=== PATIENT | male | born 1950 | race Hispanic/Latino ===

== ENCOUNTER 2022-05-02 20:47 | Emergency (ER) | payer OTHER ==
--- OUTSIDE RECORDS SUMMARY | 2022-05-02 20:51 | XMS REPORT | Continuity of Care Document ---
:1950 Author Organization [facility] t Address [address] [place] [address] Care Team Providers Name Role Phone Riddhi Hurtado Primary Care Physician Riddhi Hurtado Attending Clinician Unavailable Doctor Unassigned, Panacea Attending Clinician Unavailable Lou Ma MD Attending Clinician LOU MA Attending Clinician Unavailable LOU MA Admitting Clinician Unavailable Payers Payer Name Policy Type Policy Number Effective Date Expiration Date S najma [place] [id number] 2017 Common Sp cyndi ing Medicare 00:00:00 [place] [id number] 2017 [facility] Sp cyndi ing Medicare 00:00:00 [facility] Problems Condition Condition Condition Status Onset Resolution Last Treating Co mments Source Name Details Category Date Date Treatment Clinician Date [id number] BPH loc w Problem Com mon urin Spirit obs/LUTS [facility] [id number] LLQ pain Problem Comm on [facility] [id number] Scrotal Problem Common pain [facility] [id number] Prostatiti Problem Com mon s, acute [facility] [id number] Hyperlipid Problem Com mon emia, [facility]specif[facility] [id number] Screening Problem Com mon PSA [facility] (prostate - [facility] specific St antigen) [facility] [id number] Blood Problem Common tests for [facility] routine - [facility] general [facility] examinatio Medica l [facility] Nicotine Nicotine Problem Commo n dependence dependence Sp cyndi [facility] Influenza Influenza Problem Com mon vaccinatio vaccinatio [facility] n n - [facility] administer ed at [facility] current Medical visit Center [id number] Prediabete Problem Co mmon s Spirit - [facility] [id number] BMI Problem Common 25.0-25.9, [facility] adult - [facility] [id number] Simple Problem Common chronic [facility] bronchitis [facility] Cough Cough Problem Common [facility] [id number] Nodule of Problem Com mon left lung [facility] [id number] Type 2 Problem Common diabetes [facility] mellitus - [facility] [id number] Diverticul Problem Co mmon osis [facility] [id number] Allergic Problem Com mon [address] conjunctiv [facility] itis of - [facility] both eyes [facility] [id number] History of Problem Co mmon colon [facility] polyps [facility] [id number] Gastroesop Problem Co mmon hageal [facility] reflux - [facility] disease [facility] esophagiti Medica [facility]ly [facility] [id number] Benign Problem Commo n 101 prostatic [facility] hyperplasi - [facility] a with [facility] urinary Medical tract Center symptoms [id number] Decreased Problem Com mon vision [facility] Allergies, Adverse Reactions, Alerts Allergy Allergy Status Severity Reaction(s) Onset Inactive Treating Comm ents Source Name Type Date Date Clinician NO KNOWN Drug Active Univers ALLERGIE Class ity of [facility] Medical Branch Social History Social Habit Start Date Stop Date Quantity Comments Source History of Current Smoker [facility] rit - Tobacco Use [facility] Sex Assigned At [facility] cyndi - [facility] Exposure to 2021-10-19 2021-10-29 Not sure University of SARS-CoV-2 00:00:00 10:12:00 [place] [facility] (event) [facility] Smoking Status Start Date Stop Date Source Tobacco smoking consumption [facility] Current Smoker 2022-02-02 00:00:00 Common Spiri [facility] Ce nter Medications Ordered Filled Start Stop Current Ordering Indication Dosage Frequency Signature Comments Components Source Medication Medication Date Date Medication? Clinician (SIG) Name Name Flomax 0.4 Flomax 0.4 2022- No 1{capsu QD Flomax 0.4 MG MG 11-12 le} MG 00:00: 00:00 00 :00 Flomax 0.4 Flomax 0.4 2022- No 1{capsu QD Flomax 0.4 MG MG 11-12 le} MG 00:00: 00:00 00 :00 Flomax 0.4 Flomax 0.4 2022- No 1{capsu QD Flomax 0.4 MG MG 11-12 le} MG 00:00: 00:00 00 :00 Flomax 0.4 Flomax 0.4 2022- No 1{capsu QD Flomax 0.4 MG MG 11-12 le} MG 00:00: 00:00 00 :00 Bactrim DS Bactrim DS 2021- No 1{table BID Bactrim DS 800-160 MG 800-160 MG 11-12 t} 800-160 MG 00:00: 00:00 00 :00 iopamidol 2021- No [id number] 64mL 64 mL, U nivers (ISOVUE 11-01 Intravenou ity o f 370-500 mL) 16:45: 15:43 s, ONCE, 1 [place] injection 00 :00 dose, On Medica l 64 mL Sat Branch 11/01/21 at 1145, Routine ProAir ProAir Yes Na Hurtado 2 puffs as Common RespiClick RespiClick 4-04 needed S pirit 00:00: - [facility] Aspirin Aspirin Yes Na Hurtado 1 tablet Co mmon Spirit [facility] Atorvastati Atorvastati Yes Na Hurtado 1 tablet Common n Calcium n Calcium Spiri [facility] ProAir ProAir No 2{puffs QID ProAir RespiClick RespiClick _as_nee RespiClick 108 (90 108 (90 ded} 108 (90 Base) Base) Base) MCG/ACT MCG/ACT MCG/ACT Aspirin 81 Aspirin 81 No 1{table QD Aspirin 81 MG MG t} MG Atorvastati Atorvastati No 1{table Atorvastat n Calcium n Calcium t} in Calcium 40 MG 40 MG 40 MG Tamsulosin Tamsulosin No 1{capsu QD Tamsulosin HCl 0.4 MG HCl 0.4 MG le} HCl 0.4 MG Aspirin 81 Aspirin 81 No 1{table QD Aspirin 81 MG MG t} MG Tamsulosin Tamsulosin No 1{capsu QD Tamsulosin HCl 0.4 MG HCl 0.4 MG le} HCl 0.4 MG ProAir ProAir No 2{puffs QID ProAir RespiClick RespiClick _as_nee RespiClick 108 (90 108 (90 ded} 108 (90 Base) Base) Base) MCG/ACT MCG/ACT MCG/ACT Atorvastati Atorvastati No Atorvastat n Calcium n Calcium in Calcium 40 MG 40 MG 40 MG Aspirin 81 Aspirin 81 No 1{table QD Aspirin 81 MG MG t} MG Atorvastati Atorvastati No Atorvastat n Calcium n Calcium in Calcium 40 MG 40 MG 40 MG Atorvastati Atorvastati No 1{table Atorvastat n Calcium n Calcium t} in Calcium 40 MG 40 MG 40 MG ProAir ProAir No 2{puffs QID ProAir RespiClick RespiClick _as_nee RespiClick 108 (90 108 (90 ded} 108 (90 Base) Base) Base) MCG/ACT MCG/ACT MCG/ACT Tamsulosin Tamsulosin No 1{capsu QD Tamsulosin HCl 0.4 MG HCl 0.4 MG le} HCl 0.4 MG Aspirin 81 Aspirin 81 No 1{table QD Aspirin 81 MG MG t} MG Atorvastati Atorvastati No Atorvastat n Calcium n Calcium in Calcium 40 MG 40 MG 40 MG Atorvastati Atorvastati No 1{table Atorvastat n Calcium n Calcium t} in Calcium 40 MG 40 MG 40 MG ProAir ProAir No 2{puffs QID ProAir RespiClick RespiClick _as_nee RespiClick 108 (90 108 (90 ded} 108 (90 Base) Base) Base) MCG/ACT MCG/ACT MCG/ACT Tamsulosin Tamsulosin No 1{capsu QD Tamsulosin HCl 0.4 MG HCl 0.4 MG le} HCl 0.4 MG Aspirin 81 Aspirin 81 No 1{table QD Aspirin 81 MG MG t} MG Atorvastati Atorvastati No Atorvastat n Calcium n Calcium in Calcium 40 MG 40 MG 40 MG Atorvastati Atorvastati No 1{table Atorvastat n Calcium n Calcium t} in Calcium 40 MG 40 MG 40 MG ProAir ProAir No 2{puffs QID ProAir RespiClick RespiClick _as_nee RespiClick 108 (90 108 (90 ded} 108 (90 Base) Base) Base) MCG/ACT MCG/ACT MCG/ACT Tamsulosin Tamsulosin No 1{capsu QD Tamsulosin HCl 0.4 MG HCl 0.4 MG le} HCl 0.4 MG Aspirin 81 Aspirin 81 No 1{table QD Aspirin 81 MG MG t} MG Atorvastati Atorvastati No Atorvastat n Calcium n Calcium in Calcium 40 MG 40 MG 40 MG ProAir ProAir No 2{puffs QID ProAir RespiClick RespiClick _as_nee RespiClick 108 (90 108 (90 ded} 108 (90 Base) Base) Base) MCG/ACT MCG/ACT MCG/ACT Atorvastati Atorvastati No 1{table Atorvastat n Calcium n Calcium t} in Calcium 40 MG 40 MG 40 MG Tamsulosin Tamsulosin No 1{capsu QD Tamsulosin HCl 0.4 MG HCl 0.4 MG le} HCl 0.4 MG ProAir ProAir No 2{puffs QID ProAir RespiClick RespiClick _as_nee RespiClick 108 (90 108 (90 ded} 108 (90 Base) Base) Base) MCG/ACT MCG/ACT MCG/ACT Aspirin 81 Aspirin 81 No 1{table QD Aspirin 81 MG MG t} MG Atorvastati Atorvastati No Atorvastat n Calcium n Calcium in Calcium 40 MG 40 MG 40 MG Tamsulosin Tamsulosin No 1{capsu QD Tamsulosin HCl 0.4 MG HCl 0.4 MG le} HCl 0.4 MG Atorvastati Atorvastati No 1{table Atorvastat n Calcium n Calcium t} in Calcium 40 MG 40 MG 40 MG Atorvastati Atorvastati No Atorvastat n Calcium n Calcium in Calcium 40 MG 40 MG 40 MG Atorvastati Atorvastati No 1{table Atorvastat n Calcium n Calcium t} in Calcium 40 MG 40 MG 40 MG ProAir ProAir No 2{puffs QID ProAir RespiClick RespiClick _as_nee RespiClick 108 (90 108 (90 ded} 108 (90 Base) Base) Base) MCG/ACT MCG/ACT MCG/ACT Tamsulosin Tamsulosin No 1{capsu QD Tamsulosin HCl 0.4 MG HCl 0.4 MG le} HCl 0.4 MG Aspirin 81 Aspirin 81 No 1{table QD Aspirin 81 MG MG t} MG Atorvastati Atorvastati No Atorvastat n Calcium n Calcium in Calcium 40 MG 40 MG 40 MG Atorvastati Atorvastati No 1{table Atorvastat n Calcium n Calcium t} in Calcium 40 MG 40 MG 40 MG ProAir ProAir No 2{puffs QID ProAir RespiClick RespiClick _as_nee RespiClick 108 (90 108 (90 ded} 108 (90 Base) Base) Base) MCG/ACT MCG/ACT MCG/ACT Tamsulosin Tamsulosin No 1{capsu QD Tamsulosin HCl 0.4 MG HCl 0.4 MG le} HCl 0.4 MG Aspirin 81 Aspirin 81 No 1{table QD Aspirin 81 MG MG t} MG Tamsulosin Tamsulosin No 1{capsu QD Tamsulosin HCl 0.4 MG HCl 0.4 MG le} HCl 0.4 MG Aspirin 81 Aspirin 81 No 1{table QD Aspirin 81 MG MG t} MG ProAir ProAir No 2{puffs QID ProAir RespiClick RespiClick _as_nee RespiClick 108 (90 108 (90 ded} 108 (90 Base) Base) Base) MCG/ACT MCG/ACT MCG/ACT Atorvastati Atorvastati No 1{table Atorvastat n Calcium n Calcium t} in Calcium 40 MG 40 MG 40 MG Atorvastati Atorvastati No 1{table QD Atorvastat n Calcium n Calcium t} in Calcium 40 MG 40 MG 40 MG Aspirin 81 Aspirin 81 No 1{table QD Aspirin 81 MG MG t} MG buPROPion buPROPion No 1{table BID buPROPion HCl ER (SR) HCl ER (SR) t_in_th HCl ER 150 MG 150 MG e_morni (SR) 150 ng} MG ProAir ProAir No 2{puffs QID ProAir RespiClick RespiClick _as_nee RespiClick 108 (90 108 (90 ded} 108 (90 Base) Base) Base) MCG/ACT MCG/ACT MCG/ACT Atorvastati Atorvastati No 1{table Atorvastat n Calcium n Calcium t} in Calcium 40 MG 40 MG 40 MG Tamsulosin Tamsulosin No 1{capsu QD Tamsulosin HCl 0.4 MG HCl 0.4 MG le} HCl 0.4 MG Aspirin 81 Aspirin 81 No 1{table QD Aspirin 81 MG MG t} MG ProAir ProAir No 2{puffs QID ProAir RespiClick RespiClick _as_nee RespiClick 108 (90 108 (90 ded} 108 (90 Base) Base) Base) MCG/ACT MCG/ACT MCG/ACT Atorvastati Atorvastati No 1{table Atorvastat n Calcium n Calcium t} in Calcium 40 MG 40 MG 40 MG Tamsulosin Tamsulosin No 1{capsu QD Tamsulosin HCl 0.4 MG HCl 0.4 MG le} HCl 0.4 MG Immunizations Ordered Filled Immunization Date Status Comments [facility] Immunization Name Name Eri FluAD 2020-12-12 Completed [facility] - 09:45:00 [facility] FluAD FluAD 2020-12-12 Completed [facility] - 09:45:00 [facility] FluAD FluAD 2020-12-12 Completed [facility] - 09:45:00 [facility] FluAD FluAD 2020-12-12 Completed [facility] - 09:45:00 [facility] FluAD FluAD 2020-12-12 Completed [facility] - 09:45:00 [facility] FluAD FluAD 2020-12-12 Completed [facility] - 09:45:00 [facility] FluAD FluAD 2020-12-12 Completed [facility] - 09:45:00 [facility] FluAD 2020-12-12 [facility] - 09:45:00 [facility] FluAD FluAD 2020-12-12 Completed [facility] - 09:45:00 [facility] FluAD FluAD 2020-12-12 Completed [facility] - 09:45:00 [facility] FluAD FluAD 2020-12-12 Completed [facility] - 09:45:00 [facility] SARS-COV-2 COVID-19 2020-05-13 Completed Unive rsity of MODERNA VACCINE 00:00:00 [facility] ical Branch SARS-COV-2 COVID-19 2020-05-13 Completed Unive rsity of MODERNA 12+ YRS 00:00:00 [facility] VACCINE Branch SARS-COV-2 COVID-19 2020-05-13 Completed Unive rsity of MODERNA VACCINE 00:00:00 [facility] SARS-COV-2 COVID-19 2020-04-15 Completed Unive rsity of MODERNA VACCINE 00:00:[address] [facility] SARS-COV-2 COVID-19 2020-04-15 Completed Unive rsity of MODERNA 12+ YRS 00:00:00 [facility] VACCINE Branch SARS-COV-2 COVID-19 2020-04-15 Completed Unive rsity of MODERNA VACCINE 00:00:00 [facility] FluAD FluAD 2017-11-23 Completed [facility] - 09:58:00 [facility] FluAD FluAD 2017-11-23 Completed [facility] - 09:58:00 [facility] FluAD FluAD 2017-11-23 Completed [facility] - 09:58:00 [facility] FluAD FluAD 2017-11-23 Completed [facility] - 09:58:00 [facility] FluAD FluAD 2017-11-23 Completed [facility] - 09:58:00 [facility] FluAD FluAD 2017-11-23 Completed [facility] - 09:58:00 [facility] FluAD FluAD 2017-11-23 Completed [facility] - 09:58:00 [facility] FluAD FluAD 2017-11-23 Completed [facility] - 09:58:00 [facility] FluAD FluAD 2017-11-23 Completed [facility] - 09:58:00 [facility] Flu Flu 2017-11-23 Completed [facility] - 09:58:00 [facility] Flu Flu 2017-11-23 Completed [facility] - 09:58:00 [facility] Flu FluAD 2017-11-23 Completed [facility] - 09:58:00 [facility] Flu 2017-11-23 Completed [facility] - 00:00:00 [facility] Vital Signs Vital Name Observation Time Observation Value Comments Source height 2022-02-02 16:00:00 63.50 [in_i] [facility] weight 2022-02-02 16:00:00 137.2 [lb_av] [facility] temperature 2022-02-02 16:00:00 97.3 [degF] [facility] bmi 2022-02-02 16:00:00 23.92 kg/m2 [facility] oximetry 2022-02-02 16:00:00 98 % [facility] respiratory rate 2022-02-02 16:00:00 16 /min Comm on [facility] blood pressure 2022-02-02 16:00:00 133 mm[Hg] [facility] - systolic [facility] blood pressure 2022-02-02 16:00:00 60 mm[Hg] Common [facility] - diastolic [facility] height 2021-11-12 15:30:00 63.50 [in_i] [facility] weight 2021-11-12 15:30:00 141.2 [lb_av] [facility] temperature 2021-11-12 15:30:00 97.9 [degF] [facility] bmi 2021-11-12 15:30:00 24.62 kg/m2 [facility] oximetry 2021-11-12 15:30:00 99 % [facility] respiratory rate 2021-11-12 15:30:00 16 /min Comm on [facility] blood pressure 2021-11-12 15:30:00 125 mm[Hg] [facility] - systolic [facility] blood pressure 2021-11-12 15:30:00 62 mm[Hg] Common [facility] - diastolic [facility] height 2021-10-30 15:40:00 63.50 [in_i] Common S pirit [facility] weight 2021-10-30 15:40:00 139.6 [lb_av] Common [facility] temperature 2021-10-30 15:40:00 97.9 [degF] Common S [facility] bmi 2021-10-30 15:40:00 24.34 kg/m2 [facility] oximetry 2021-10-30 15:40:00 95 % Common S [facility] respiratory rate 2021-10-30 15:40:00 16 /min Comm on [facility] blood pressure 2021-10-30 15:40:00 137 mm[Hg] [facility] - systolic [facility] blood pressure 2021-10-30 15:40:00 64 mm[Hg] Common [facility] - diastolic [facility] height 2021-06-09 08:00:00 63.50 [in_i] Common [facility] weight 2021-06-09 08:00:00 137.0 [lb_av] Common [facility] temperature 2021-06-09 08:00:00 97.9 [degF] Common [facility] bmi 2021-06-09 08:00:00 23.89 kg/m2 Common S [facility] oximetry 2021-06-09 08:00:00 96 % Common S [facility] respiratory rate 2021-06-09 08:00:00 18 /min Comm on [facility] blood pressure 2021-06-09 08:00:00 122 mm[Hg] [facility] - systolic [facility] blood pressure 2021-06-09 08:00:00 56 mm[Hg] [facility] - diastolic [facility] height 2021-06-09 08:40:00 63.50 [in_i] Common [facility] weight 2021-06-09 08:40:00 137 [lb_av] Common [facility] temperature 2021-06-09 08:40:00 97.9 [degF] Common S [facility] bmi 2021-06-09 08:40:00 23.89 kg/m2 Common [facility] oximetry 2021-06-09 08:40:00 96 % Common [facility] respiratory rate 2021-06-09 08:40:00 18 /min Comm on [facility] blood pressure 2021-06-09 08:40:00 122 mm[Hg] Common [facility] - systolic [facility] blood pressure 2021-06-09 08:40:00 56 mm[Hg] [facility] - diastolic [facility] height 2021-03-11 08:20:00 63.50 [in_i] Common [facility] weight 2021-03-11 08:20:00 143 [lb_av] Common [facility] temperature 2021-03-11 08:20:00 97.2 [degF] Common [facility] bmi 2021-03-11 08:20:00 24.93 kg/m2 Common [facility] oximetry 2021-03-11 08:20:00 99 % Common [facility] respiratory rate 2021-03-11 08:20:00 21 /min Comm on [facility] blood pressure 2021-03-11 08:20:00 120 mm[Hg] Common [facility] - systolic [facility] blood pressure 2021-03-11 08:20:00 68 mm[Hg] [facility] - diastolic [facility] height 2020-12-12 09:00:00 63.50 [in_i] [facility] weight 2020-12-12 09:00:00 143 [lb_av] [facility] temperature 2020-12-12 09:00:00 97.3 [degF] [facility] bmi 2020-12-12 09:00:00 24.93 kg/m2 [facility] oximetry 2020-12-12 09:00:00 98 % [facility] respiratory rate 2020-12-12 09:00:00 20 /min Comm on [facility] blood pressure 2020-12-12 09:00:00 128 mm[Hg] Common [facility] systolic [facility] blood pressure 2020-12-12 09:00:00 70 mm[Hg] Common [facility] diastolic [facility] Procedures Procedure Date / Time Performing Clinician Source Performed AUTHORIZATION FOR 2021-11-17 05:01:00 Doctor Unassigned, No [facility] HB CREATININE BLOOD 2021-11-01 15:31:00 Lou Ma [facility] ASSIGNMENT OF BENEFITS 2021-11-01 15:02:11 Doctor Unassigned, No [facility] Start End Encounter Admission Attending Care Care Encounter Source Date/Time Date/Time Type Type Clinicians Facility Department ID 2022-04-20 Outpatient STLMLC STLMLC [id number] Common 11:45:00 [id number] [facility] 2022-01-30 Outpatient Hurtado, Na STLMLC STLMLC [id number] 2 Common 09:16:00 [facility] 2022-01-28 Outpatient Hurtado, Na STLMLC STLMLC [id number] 2 Common 11:15:01 [facility] 2022-01-22 Outpatient Hurtado, Na STLMLC STLMLC [id number] 2 Common 14:48:00 [facility] 2021-09-09 Outpatient Hurtado, Na STLMLC STLMLC [id number] 2 Common 08:19:00 [facility] 2021-06-03 Outpatient Hurtado, Na STLMLC STLMLC [id number] 2 Common 16:23:00 [facility] 2021-04-30 Outpatient Hurtado, Na STLMLC STLMLC [id number] 2 Common 09:15:01 [facility] 2021-04-02 Outpatient Hurtado, Na STLMLC STLMLC [id number] 2 Common 14:30:23 [facility] 2021-04-02 Outpatient Hurtado, Na STLMLC STLMLC [id number] 2 Common 13:56:47 [facility] 2021-04-02 Outpatient Hurtado, Na STLMLC STLMLC [id number] 2 Common 13:13:10 [id number] [facility] 2021-04-02 Outpatient Hurtado, Na STLMLC STLMLC [id number] 2 Common 13:12:28 [id number] [facility] 2021-04-02 Outpatient Hutrado, Na STLMLC STLMLC [id number] 2 Common 12:25:14 [facility] 2021-04-02 Outpatient Hurtado, Na STLMLC STLMLC [id number] 2 Common 12:25:08 [id number] [facility] 2021-04-02 Outpatient Hurtado, Na STLMLC STLMLC [id number] 2 Common 12:22:40 [id number] [facility] 2021-04-02 Outpatient Hurtado, Na STLMLC STLMLC [id number] 2 Common 11:56:06 [id number] [facility] 2021-04-02 Outpatient Hurtado, Na STLMLC STLMLC [id number] 2 Common 11:55:04 [id number] [facility] 2021-04-02 Outpatient Hurtado, Na STLMLC STLMLC [id number] 2 Common 11:30:59 [id number] [facility] 2021-04-02 Outpatient Hurtado, Na STLMLC STLMLC [id number] 2 Common 11:18:12 [id number] [facility] 2021-04-02 Outpatient Hurtado, Na STLMLC STLMLC [id number] 2 Common 11:17:41 [id number] [facility] 2022-02-02 2022-02-02 OFFICE STLMLC STLMLC [id number] Co mmon 00:00:00 00:00:00 VISIT EST Spir it PT LEVEL 3 - [facility] 2022-01-21 2022-01-21 (TEL) STLMLC STLMLC [id number] Co mmon 00:00:00 00:00:00 [facility] 2021-12-31 2021-12-31 (TEL) STLMLC STLMLC [id number] Co mmon 00:00:00 00:00:00 [facility] 2021-11-17 2021-11-17 Orders Doctor KAYLA [id number] Univers 00:00:00 00:00:00 Only Unassigned, ZURDO [id number] ity of [facility] [id number] [facility] [id number] [facility] 009 Branch 2021-11-12 2021-11-12 OFFICE STLMLC STLMLC [id number] Co mmon 00:00:00 00:00:00 VISIT NEW Spir it PT LEVEL 4 - [facility] 2021-11-01 2021-11-01 [facility] [id number] Univers 10:05:24 23:59:00 Encounter Alvarez PALOMINO [id number] ity [facility] [id number] [facility] [id number] [facility] 801 Branch 2021-11-01 2021-11-01 Outpatient R [facility] [id number] Univers 10:05:24 23:59:00 ity of [facility] 2021-11-01 2021-11-01 Orders Doctor GARZA [id number] Univers 00:00:00 00:00:00 Only Unassigned ZURDO [id number] ity [facility] [id number] Bernardo as [id number] [place] [address] Branch 2021-10-30 2021-10-30 OFFICE STLMLC STLMLC [id number] Co mmon 00:00:00 00:00:00 VISIT Spirit ESTAB PT - CHI LEVEL 4 [facility] 2021-10-16 2021-10-16 (TEL) STLMLC STLMLC [id number] Co mmon 00:00:00 00:00:00 [facility] 2021-06-09 2021-06-09 SUB ANNUAL STLMLC STLMLC [id number] Common 00:00:00 00:00:00 MCR [facility] WELLNESS - [facility] VISIT [facility] 2021-06-09 2021-06-09 OFFICE STLMLC STLMLC [id number] Co mmon 00:00:00 00:00:00 VISIT EST Spir it PT LEVEL 3 - [facility] 2021-04-30 2021-04-30 (TEL) STLMLC STLMLC [id number] Co mmon 00:00:00 00:00:00 [facility] 2021-03-11 2021-03-11 OFFICE STLMLC STLMLC [id number] Co mmon 00:00:00 00:00:00 VISIT EST Spir it PT LEVEL 3 [facility] 2020-12-12 2020-12-12 OFFICE STLMLC STLMLC [id number] Co mmon 00:00:00 00:00:00 VISIT EST Spir it PT LEVEL 3 - CHI [facility] 2020-10-08 2020-10-08 Outpatient STLMLC STLMLC [id number] Common 00:00:00 00:00:00 [facility] 2020-10-08 2020-10-08 Outpatient STLMLC STLMLC [id number] Common 00:00:00 00:00:00 [facility] 2020-08-16 2020-08-16 Outpatient STLMLC STLMLC [id number] Common 00:00:00 00:00:00 [facility] 2020-08-16 2020-08-16 Outpatient STLMLC STLMLC [id number] Common 00:00:00 00:00:00 [facility] [place] 2020-08-08 2020-08-08 Outpatient [facility] ST[facility] [id number] Common 00:00:00 00:00:00 [facility] 2020-06-17 2020-06-17 Outpatient [facility] STL[facility]C [id number] Common 00:00:00 00:00:00 [facility] 2020-05-31 2020-05-31 (TEL) STLMLC STLMLC [id number] Co mmon 00:00:00 00:00:00 [facility] 2020-04-02 2020-04-02 Outpatient [facility]LMLC STLMLC [id number] Common 00:00:00 00:00:00 [facility] 2020-01-22 2020-01-22 Outpatient [facility]LMLC STLMLC [id number] Common 00:00:00 00:00:00 [facility] [place] 2019-12-22 2019-12-22 Outpatient [facility]LMLC STLMLC [id number] Common 00:00:00 00:00:00 [facility] [place] 2019-12-22 2019-12-22 Outpatient STLMLC STLMLC [id number] Common 00:00:00 00:00:00 [facility] 2019-09-21 2019-09-21 [facility] [id number] Common 10:20:00 10:20:[address] [facility] 2019-06-22 2019-06-22 [facility] [id number] Common 09:40:00 09:40:[address] [facility] 2019-03-22 2019-03-22 [facility] [id number] Common 08:00:00 08:00:[address] [facility] 2019-03-13 2019-03-13 [facility] [id number] Common 08:23:00 08:23:[address] [facility] 2018-12-20 2018-12-20 [facility] [id number] Common 16:20:00 16:20:[address] [facility] 2018-10-18 2018-10-18 [facility] [id number] Common 15:00:00 15:00:[address] [facility] 2018-10-03 2018-10-03 [facility] [id number] Common 08:03:00 08:03:[address] [facility] 2018-09-16 2018-09-16 [facility] [id number] Common 16:40:00 16:40:[address] [facility] 2018-06-09 2018-06-09 [facility] [id number] Common 13:20:00 13:20:[address] [facility] 2018-05-23 2018-05-23 [facility] [id number] Common 08:15:00 08:15:[address] [facility] 2017-11-29 2017-11-29 Outpatient eleniRomina eleniRomina [id number] Common 16:00:00 16:00:00 Dorothy De La Cruz Sp cyndi DO [facility] 2017-11-23 2017-11-23 [facility] [id number] Common 08:45:00 08:45:[address] [facility] 2017-08-23 2017-08-23 [facility] [id number] Common 11:15:00 11:15:[address] [facility] Results Test Description Test Time Test Comments Results Result Comments Source POCT CREATININE 2021-11-01 15:54:53 Test Item Value Reference Range Interpretation Comme nts POCT Creatinine (test code = 7170859940) 1.0 mg/dL 0.6-1.3 Lab Interpretation (test code = 73128-3) [facility][id number] 00:00:00 Test Item Value Reference Range Interpretation Comments Urine Culture,Comprehensive Final report (test code = 630-4)
--- NOTE | 2022-05-02 21:25 | RAD REPORT ---
EXAM DESCRIPTION: CT - CTHCSPWOC - 05/02/2022 9:15 pm CLINICAL HISTORY: Trauma, head and neck injury. TRAUMA COMPARISON: No comparisons TECHNIQUE: Axial 5 mm thick images of the head were obtained. Axial 2 mm thick images of the cervical spine were obtained with sagittal and coronal reconstruction images generated and reviewed. All CT scans are performed using dose optimization technique as appropriate and may include automated exposure control or mA/KV adjustment according to patient size. FINDINGS: CT HEAD WITHOUT CONTRAST: No acute hemorrhage, hydrocephalus or extra-axial collection is identified.No areas of brain edema or midline shift. The paranasal sinuses and mastoids are clear.The calvarium is intact. CT CERVICAL SPINE WITHOUT CONTRAST: No fracture or subluxation.No prevertebral soft tissues swelling is identified. Multilevel degenerati ve changes are present in the spine. Appearing degrees of neural foraminal narrowing noted. Bridging osteophytes are present anteriorly IMPRESSION: No acute intracranial or cervical spine findings.
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
== END 2022-05-02 22:53 | disposition home or self-care (01) ==
LOC: ER 20:47
DX: S09.90XA Unspecified injury of head, initial encounter (principal); S60.222A Contusion of left hand, initial encounter
CPT/HCPCS: 70450; 70486; 72125; 76377; 99283